=== PATIENT | male | born 1980 | race Caucasian/White ===

== ENCOUNTER 2024-06-22 15:36 | Emergency (ER) | payer OTHER, SELFPAY ==
[2024-06-22 15:45] VITALS: BP 171/98; PULSE 105; RESP 18; TEMP 37.4; O2SAT 97; BMI 30.8
[2024-06-22] MEDS: BUPIVACAINE 0.25% 30 ML INJECTION (16:00)
--- NOTE | 2024-06-22 16:06 | CRLHL7_ITS ---
For Patients: As a result of the Cures Act, medical imaging exams and procedure reports are released immediately into your electronic medical record. You may view this report before your referring provider. If you have questions, please contact your health care provider. Indication: Distal crushing of 2nd and 3rd fingers Technique: Three views of the right hand. Comparison: None. Findings: Moderately comminuted and displaced 2nd and 3rd distal phalangeal fractures. Moderate associated soft tissue injuries. Impression: Moderately comminuted and displaced 2nd and 3rd distal phalangeal fractures. Dictated by Lenin Thompson MD @ 06/22/2024 4:36:13 PM (Electronically Signed)
--- NOTE | 2024-06-22 17:04 | ED_ITS ---
HPI - General Adult General Chief complaint: Laceration/Wound Stated complaint: Crushed fingers R hand Time Seen by Provider: 06/22/24 15:44 History of Present Illness HPI narrative: Pt was working on vehicle when motor cover fell on right fingers. Pt right hands, 2nd and 3rd digits appear mangled. Happened 30 minutes ago. 44-year-old man presenting to the emergency department following injury to his right hand specifically fingers 2, 3, 4 while working on a car. Evidently an engine cover of some sort dropped on his hand. Occurred 30 minutes prior to arrival here approximately head about 3:15 p.m. reports last tetanus was about 5 years ago. Is having a good deal of pain. No other injuries apparently sustained. Related Data Home Medications ?Medication ?Instructions ?Recorded ?Confirmed No Known Home Medications 06/22/24 06/22/24 Allergies Allergy/AdvReac Type Severity Reaction Status Date / Time Penicillins Allergy Verified 06/22/24 15:50 Review of Systems Status of ROS: Reports: 6 or more systems reviewed and unremarkable except as noted in History and below PFSH [facility] Social History Smoking Status: Never smoker Do you use any of these nicotine containing products: None How often do you have a drink containing alcohol: never AUDIT-C Alcohol total score: 0 Non-prescribed substance use: denies use Exam Narrative: Exam Narrative: I enter exam room to see Mr. Moses pacing quietly holding his right hand elevated wrapped in bloody gauze. Breathing easily. Injuries appear limited to this right hand. On initial exam right 3rd finger on dorsal surface at the DIP joint is large horizontal opening. This extends proximally to the mid of the middle phalanx. The tendon appears to be visible. Somewhat dusky in color distally. There is gummy tissue that has extruded from the radial side nail I suspect to be tendon sheath? There is laceration also on the volar surface longitudinally. The index finger also with partial nail avulsion and what looks to be partial amputation of the distal finger. The 4th finger on the ulnar side has a light intradermal abrasion proximal to the nail. All wounds bleed readily with manipulation. Otherwise bleeding relatively controlled. Const: Vital Signs, click to edit/add: Vital Signs - 24 hr 06/22/24 15:45 06/22/24 17:45 Temperature 99.3 F Pulse Rate [Right Pulse Oximeter] 105 H 96 Respiratory Rate 18 16 Blood Pressure [Ri ght Upper Arm] 171/98 H 140/86 H Pulse Oximetry 97 97 Oxygen Delivery Me thod Room Air Room Air Documenting provider has reviewed patient's vital signs: yes Course Vital Signs Vital signs: Initial Vital Signs Temperature 99.3 F 06/22/24 15:45 Temperature Source Temporal Artery Scan 06/22/24 15:45 Pulse Rate 105 H 06/22/24 15:45 Pulse Rhythm Regular 06/22/24 15:45 Respiratory Rate 18 06/22/24 15:45 Blood Pressure 171/98 H 06/22/24 15:45 Blood Pressure Mean 122 H 06/22/24 15:45 Blood Pressure Position Sitting 06/22/24 15:45 Pulse Oximetry 97 06/22/24 15:45 Oxygen Delivery Method Room Air 06/22/24 15:45 Vital Signs Temperature 99.3 F 06/22/24 15:45 Pulse Rate 105 H 06/22/24 15:45 Respiratory Rate 18 06/22/24 15:45 Blood Pressure 171/98 H 06/22/24 15:45 Pulse Oximetry 97 06/22/24 15:45 Oxygen Delivery Method Room Air 06/22/24 15:45 Temperature 99.3 F 06/22/24 15:45 Pulse Rate 96 06/22/24 17:45 Respiratory Rate 16 06/22/24 17:45 Blood Pressure 140/86 H 06/22/24 17:45 Pulse Oximetry 97 06/22/24 17:45 Oxygen Delivery Method Room Air 06/22/24 17:45 Medications Administered Medications: Discontinued Medications Generic Name Dose Route Start Last Admin Trade Name Freq PRN Reason Stop Dose Admin Bupivacaine HCl 30 ml 06/22/24 15:55 06/22/24 16:00 Bupivacaine 0.25% 30 Ml INJECTION 06/22/24 15:56 30 ml ONCE ONE Administration Cephalexin HCl 1,000 mg 06/22/24 17:51 06/22/24 18:13 Cephalexin 500 Mg Capsule PO 06/22/24 17:52 1,000 mg ONCE ONE Administration Medical Decision Making MDM Narrative Medical decision making narrative: Clearly significant crush and partial avulsion trauma. I am concerned about particularly tendon laceration of the extensors of the 3rd and index finger. Presuming fractures of the distal phalanges. These are open fractures. Placed digital blocks with bupivacaine to both index and 3rd finger. Adequate anesthesia was achieved much more comfort reported. Evaluating further with x-rays. Reviewed by me X-rays of the right hand shows comminuted distal phalangeal fractures of 3rd and index finger. Return to clean further with normal saline irrigation and examine in more detail . The 3rd finger distally in particular has full avulsion of the extensor tendon at the D IP. I do discuss these findings with our Orthopedics on-call. There expressed concern of perfusion distally prompting my call to [facility]. I speak with the hand surgeon there who ultimately recommends transfer for further evaluation and cares. Wrapped in normal saline soaked moist gauze. Given cephalexin as antibiotic prophylaxis prior to departure. Updated [employer] Private conveyance with friend who accompanied to [facility]. Discharge Plan Discharge Clinical Impression: Partial traumatic transphalangeal amputation of finger, Extensor tendon laceration, finger, open wound Patient Disposition: Home w/ Parent or Adult Condition: Stable Additional Instructions: Please go directly to [facility] Emergency Department. I spoke with Dr. Wakefield (?) hand specialist who along with ED staff is expecting you in the ED this evening. Prescriptions: No Action No Known Home Medications Stand Alone Forms: [employer]ealth Info Instructions
[2024-06-22 17:45] VITALS: BP 140/86; PULSE 96; RESP 16; O2SAT 97
[2024-06-22] MEDS: cephALEXin 500 MG CAPSULE 1000 MG PO (18:13)
== END 2024-06-22 18:15 | disposition home or self-care (01) ==
PROVIDERS: Emergency Provider Family Medicine
DX: S68.122A Partial traumatic metacarpophalangeal amputation of right middle finger, initial encounter (principal); S68.120A Partial traumatic metacarpophalangeal amputation of right index finger, initial encounter; W20.8XXA Other cause of strike by thrown, projected or falling object, initial encounter
CPT/HCPCS: 64450; 73130; 99284; A9270; J0665